=== PATIENT | male | born 1980 | race Caucasian/White ===

== ENCOUNTER 2018-10-27 10:58 | Emergency (ER) | payer BC ==
[~2018-10-27] VITALS: Ht 182.9 cm; Wt 136.4 kg
[~2018-10-27 10:58] MED LIST: CIPRO 500MG TA500 MG PO; FLAGYL500 MG PO; PERCOCET 325 MG1 TA3 PO; ZOFRAN ODT4 MG PO
[2018-10-27 11:29] VITALS: TEMP 97.8
[2018-10-27] MEDS ORDERED: ULTRAM 50MG TAB50 MG PO (12:47)
[2018-10-27] MEDS ORDERED: EFFEXOR XR37.5 MG/CA (12:47)
[2018-10-27] MEDS ORDERED: NORCO 325 MG-51 TAB PO (14:10)
[2018-10-27 14:15] VITALS: BP 120/60; PULSE 72
== END 2018-10-27 14:16 | disposition home or self-care (01) ==
LOC: COL.ER 10:58
DX: S23.41XA Sprain of ribs, initial encounter (principal); X50.0XXA Overexertion from strenuous movement or load, initial encounter